=== PATIENT | male | born 1985 | race Two or more races ===

== ENCOUNTER 2017-02-17 12:24 | Emergency (ER) | payer MEDICAID ==
[~2017-02-17] VITALS: Ht 177.8 cm; Wt 66.2 kg
[2017-02-17 13:05] LABS: Urine Bilirubin Negative (Negative); Urine Blood Negative /uL (Negative); Urine Color Yellow (Yellow); Urine Glucose Normal (Normal); Urine Mucus FEW (None Seen); Urine Nitrite Negative (Negative); Urine RBC 1 /hpf (0 - 3)
[2017-02-17 13:13] LABS: Urine Ketone 4+ (Negative)
[2017-02-17 13:17] LABS: Basophils # (auto) 0 uL; Basophils % (auto) 0.3 % (0.0-2.0); CONDITION Y; Eosinophils # (auto) 0 uL; Eosinophils % (auto) 0.4 % (0.0-7.0); Hematocrit 49.1 % (41.0-53.0); Hemoglobin 16.9 g/dL (13.5-17.5); Lymphocytes # (auto) 2.2 uL; Lymphocytes % (auto) 27.2 % (10.0-50.0); Mean Corpuscular Hgb Conc. 34.3 g/dL (32.0-36.0); Mean Corpuscular Volume 90.4 fL (80.0-100.0); Mean Platelet Volume 9.2 fL (7.4-10.4); Monocytes # (auto) 0.4 uL; Monocytes % (auto) 5.2 % (0.0-12.0); Neutrophils # (auto) 5.4 uL; Neutrophils % (auto) 66.9 % (37.0-80.0); Platelet Count (auto) 268 10^3/uL (140-450); Red Cell Distribution Width 12.6 % (11.6-16.0)
[2017-02-17 13:27] LABS: Albumin 4.6 g/dL (3.4-5.0); BUN/Creatinine Ratio 13.1; Calcium 9.4 mg/dL (8.5-10.1); Potassium 3.9 mmol/L (3.5-5.1)
[2017-02-17 13:30] LABS: Bilirubin, Total 4.5 mg/dL (0.2-1.0); Total Protein 8.4 g/dL (6.4-8.2)
[2017-02-17] MEDS ORDERED: HYDROmorphone HCL 2 MG/ML VL IV ONE (17:15)
[2017-02-17] MEDS ORDERED: DONNATAL 5ml ORAL Elix (BELLADONNA ALK-PHENOBARB) PO ONE (17:15)
[2017-02-17] MEDS ORDERED: ALUM & MAG HYDROX-SIMETH LIQ(MAALOX) 30 ML PO ONE (17:15)
[2017-02-17] MEDS ORDERED: LIDOCAINE VISCOUS 2% 15ML UD PO ONE (17:15)
[2017-02-17] MEDS ORDERED: PANTOPRAZOLE SODIUM 40 MG/10 ML VIAL IV ONE (17:15)
[2017-02-17] MEDS ORDERED: SODIUM CHLORIDE 0.9% 1,000 ML IV ONE ×3 (17:15→20:30)
[2017-02-17] MEDS ORDERED: ONDANSETRON HCL 4 MG/2 ML VIAL IV ONE (17:15)
[2017-02-17] MEDS ORDERED: PROMETHAZINE HCL 25 MG/ML 1ML IV ONE ×2 (20:00→20:15)
[2017-02-17] MEDS ORDERED: LORazepam 2MG/ML-1ML VIAL IV ONE (20:00)
[2017-02-17 21:10] VITALS: BP 125/82
== END 2017-02-17 22:13 | disposition home or self-care (01) ==
LOC: ER 12:24
DX: K29.00 Acute gastritis without bleeding (principal); E86.0 Dehydration; F12.10 Cannabis abuse, uncomplicated
CPT/HCPCS: 36415; 74176; 80053; 80307; 80320; 81001; 83690; 84484; 85025; 93005; 96361; 96374; 96375; 99285; C9113; J1170; J2060; J2405; J7030

== ENCOUNTER 2017-02-18 05:10 | Emergency (ER) | payer MEDICAID ==
[~2017-02-18] VITALS: Ht 170.2 cm; Wt 63.5 kg
[2017-02-18 06:14] VITALS: BP 130/60
[2017-02-18] MEDS ORDERED: LORazepam 2MG/ML-1ML VIAL IV ONE (06:45)
[2017-02-18] MEDS ORDERED: SODIUM CHLORIDE 0.9% 1,000 ML IV ONE (06:45)
== END 2017-02-18 08:33 | disposition home or self-care (01) ==
LOC: EDBD 05:10 → ER 05:12
DX: F41.9 Anxiety disorder, unspecified (principal); E86.0 Dehydration; G47.00 Insomnia, unspecified; F12.10 Cannabis abuse, uncomplicated; F32.9 Major depressive disorder, single episode, unspecified; R11.2 Nausea with vomiting, unspecified
CPT/HCPCS: 96361; 96374; 99284; J2060

== ENCOUNTER 2017-08-31 19:18 | Emergency (ER) | payer MEDICAID ==
[~2017-08-31] VITALS: Ht 177.8 cm; Wt 77.1 kg
[2017-08-31 19:33] VITALS: BP 118/86
[2017-08-31 20:41] LABS: Basophils # (auto) 0.2 uL; Basophils % (auto) 1.6 % (0.0-2.0); Eosinophils # (auto) 0.1 uL; Eosinophils % (auto) 0.9 % (0.0-7.0); Hematocrit 47.6 % (41.0-53.0); Hemoglobin 16.3 g/dL (13.5-17.5); Lymphocytes # (auto) 2.2 uL; Lymphocytes % (auto) 17.1 % (10.0-50.0); Mean Corpuscular Hemoglobin 31.1 pg (28.0-32.0); Mean Corpuscular Hgb Conc. 34.3 g/dL (32.0-36.0); Mean Corpuscular Volume 90.6 fL (80.0-100.0); Monocytes % (auto) 7.9 % (0.0-12.0); Neutrophils # (auto) 9.4 uL; Neutrophils % (auto) 72.5 % (37.0-80.0); Nucleated Red Blood Cells % 0.1 %; Platelet Count (auto) 219 10^3/uL (140-450); Red Blood Cells 5.26 10^6/uL (4.5-5.90); Red Cell Distribution Width 12.8 % (11.8-14.3); White Blood Cell 12.9 10^3/uL (4.4-10.8)
[2017-08-31 20:57] LABS: Albumin 4.2 g/dL (3.4-5.0); BUN/Creatinine Ratio 13.3; Calcium 9.5 mg/dL (8.5-10.1); Potassium 3.7 mmol/L (3.5-5.1)
[2017-08-31 21:00] LABS: Bilirubin, Total 2.3 mg/dL (0.2-1.0); Total Protein 8.9 g/dL (6.4-8.2)
== END 2017-08-31 23:30 | disposition left against medical advice (07) ==
LOC: ER 19:18
DX: R10.11 Right upper quadrant pain (principal); R11.2 Nausea with vomiting, unspecified; Z53.21 Procedure and treatment not carried out due to patient leaving prior to being seen by health care provider
CPT/HCPCS: 36415; 74176; 80053; 82150; 83690; 85025

== ENCOUNTER 2017-09-01 07:08 | Emergency (ER) | payer MEDICAID ==
[~2017-09-01] VITALS: Ht 177.8 cm; Wt 77.1 kg
[2017-09-01 07:19] VITALS: BP 120/83
== END 2017-09-01 08:20 | disposition home or self-care (01) ==
LOC: ER 07:08
DX: J40 Bronchitis, not specified as acute or chronic (principal); J02.9 Acute pharyngitis, unspecified

== ENCOUNTER 2018-08-11 10:53 | Emergency (ER) | payer BC, MEDICAID, OTHER ==
[~2018-08-11] VITALS: Ht 177.8 cm; Wt 72.6 kg
[2018-08-11 11:56] LABS: Basophils # (auto) 0 uL; Basophils % (auto) 0.5 % (0.0-2.0); Eosinophils # (auto) 0.4 uL; Eosinophils % (auto) 4.8 % (0.0-7.0); Hemoglobin 15.9 g/dL (13.5-17.5); Lymphocytes # (auto) 1.9 uL; Lymphocytes % (auto) 26.3 % (10.0-50.0); Mean Corpuscular Hemoglobin 31.2 pg (28.0-32.0); Mean Corpuscular Hgb Conc. 34.5 g/dL (32.0-36.0); Mean Corpuscular Volume 90.4 fL (80.0-100.0); Monocytes # (auto) 0.4 uL; Monocytes % (auto) 5.8 % (0.0-12.0); Neutrophils # (auto) 4.6 uL; Neutrophils % (auto) 62.6 % (37.0-80.0); Platelet Count (auto) 216 10^3/uL (140-450); Red Blood Cells 5.09 10^6/uL (4.5-5.90); Red Cell Distribution Width 12.5 % (11.8-14.3); White Blood Cell 7.3 10^3/uL (4.4-10.8)
[2018-08-11 12:17] LABS: Alanine Aminotransferase 22 U/L (16-61); Anion Gap 5 (5-15); Aspartate Aminotransferase 14 U/L (15-37); BUN/Creatinine Ratio 13.8; Blood Urea Nitrogen 12 mg/dL (7-18); Carbon Dioxide 26 mmol/L (21-32); Chloride 108 mmol/L (98-107); GFR African American > 60 mL/min; GFR Non-African American > 60 mL/min; Glucose 85 mg/dL (74-106); Potassium 4.4 mmol/L (3.5-5.1); Sodium 139 mmol/L (136-145)
[2018-08-11 12:19] LABS: Alkaline Phosphatase 60 U/L (45-117); Bilirubin, Total 1.5 mg/dL (0.2-1.0)
[2018-08-11 15:33] VITALS: BP 106/65
[2018-08-11] MEDS ORDERED: KETOROLAC TROMETH 60MG/2ML VIAL IM ONE (15:45)
== END 2018-08-11 16:13 | disposition home or self-care (01) ==
LOC: ER 10:53
DX: S39.012A Strain of muscle, fascia and tendon of lower back, initial encounter (principal); F12.90 Cannabis use, unspecified, uncomplicated; X50.0XXA Overexertion from strenuous movement or load, initial encounter; Y93.89 Activity, other specified; Y99.8 Other external cause status; Y92.89 Other specified places as the place of occurrence of the external cause
CPT/HCPCS: 36415; 74176; 80053; 81002; 85025; 96372; 99284; J1885

== ENCOUNTER 2019-10-06 07:47 | Emergency (ER) | payer BC, MEDICAID ==
[~2019-10-06] VITALS: Ht 177.8 cm; Wt 77.1 kg
[2019-10-06 08:06] VITALS: BP 135/80
[2019-10-06] MEDS ORDERED: LORazepam 2MG/ML-1ML VIAL IM ONE (08:15)
[2019-10-06] MEDS ORDERED: PROMETHAZINE HCL 25 MG/ML 1ML IM ONE (08:15)
[2019-10-06] MEDS ORDERED: PANTOPRAZOLE 40 MG TAB PO ONE (08:45)
== END 2019-10-06 09:50 | disposition home or self-care (01) ==
LOC: ER 07:47
DX: F41.1 Generalized anxiety disorder (principal); F32.9 Major depressive disorder, single episode, unspecified; R19.7 Diarrhea, unspecified
CPT/HCPCS: 96372; 99284; J2060; J2550

== ENCOUNTER 2019-10-07 14:22 | Emergency (ER) | payer MEDICAID, OTHER ==
[~2019-10-07] VITALS: Ht 177.8 cm; Wt 79.8 kg
[2019-10-07] MEDS ORDERED: SODIUM CHLORIDE 0.9% 1,000 ML IV ONE (15:59)
[2019-10-07] MEDS ORDERED: PANTOPRAZOLE 40 MG/10 ML VIAL INJ IV ONE (16:00)
[2019-10-07] MEDS ORDERED: PROCHLORPERAZINE EDISYLATE 5 MG/ML 2ML VIAL IV ONE (16:00)
[2019-10-07 16:39] LABS: Eosinophils # (auto) 0 10 ^3/uL (0-0.8); Eosinophils % (auto) 0.3 % (0.0-7.0); Monocytes # (auto) 0.4 10 ^3/uL (0-1.3); Neutrophils # (auto) 6.4 10 ^3/uL (1.6-8.6); Nucleated Red Blood Cells % 0.1 %; White Blood Cell 9.5 10^3/uL (4.4-10.8)
[2019-10-07 16:41] LABS: Basophils # (auto) 0 10 ^3/uL (0-0.2); Basophils % (auto) 0.5 % (0.0-2.0); Hematocrit 51.9 % (41.0-53.0); Hemoglobin 18.2 g/dL (13.5-17.5); Lymphocytes # (auto) 2.6 10 ^3/uL (0.4-5.4); Lymphocytes % (auto) 27.7 % (10.0-50.0); Mean Corpuscular Volume 88.5 fL (80.0-100.0); Monocytes % (auto) 4.4 % (0.0-12.0); Neutrophils % (auto) 67.1 % (37.0-80.0); Platelet Count (auto) 227 10^3/uL (140-450); Red Blood Cells 5.87 10^6/uL (4.5-5.90)
[2019-10-07 17:18] VITALS: BP 112/97
[2019-10-07 17:35] LABS: Albumin 3.6 g/dL (3.4-5.0); BUN/Creatinine Ratio 15.7; Calcium 8.4 mg/dL (8.5-10.1); Potassium 3.4 mmol/L (3.5-5.1)
[2019-10-07 17:38] LABS: Bilirubin, Total 3.2 mg/dL (0.2-1.0); Total Protein 7.4 g/dL (6.4-8.2)
== END 2019-10-07 17:50 | disposition home or self-care (01) ==
LOC: ER 14:22 → EDUNIT# 14:22 → ER 17:50
DX: F41.9 Anxiety disorder, unspecified (principal); K52.9 Noninfective gastroenteritis and colitis, unspecified
CPT/HCPCS: 36415; 80053; 85025; 96361; 96374; 96375; 99284; C9113; J0780; J7030